=== PATIENT | male | born 1950 | race Caucasian/White ===

== ENCOUNTER → 2023-01-16 13:14 | Outpatient (BNVA) | payer MEDICARE, SELFPAY | PROVIDERS: Referring Provider Family Medicine; Visit Provider Specialist | DX: R42 Dizziness and giddiness (principal); R26.81 Unsteadiness on feet; R47.81 Slurred speech; M62.81 Muscle weakness (generalized) | CPT/HCPCS: 36415; 83516; 83519; 99204 ==

== ENCOUNTER → 2023-03-24 12:04 | Outpatient (BNVA) | payer MEDICARE, SELFPAY | PROVIDERS: PCP Family Medicine; Visit Provider Specialist | DX: R26.89 Other abnormalities of gait and mobility (principal); R42 Dizziness and giddiness; H46.9 Unspecified optic neuritis; Z91.81 History of falling | CPT/HCPCS: 99214 ==

== ENCOUNTER 2023-04-13 12:46 | Outpatient (CLI) | payer MEDICARE, SELFPAY ==
--- NOTE | 2023-04-13 13:00 | MR_ITS ---
WS: [id number] MRI CERVICAL SPINE NONCONTRAST TECHNIQUE: Sagittal T1, T2 and STIR imaging. Axial T2, gradient, and fiesta imaging. CLINICAL INFORMATION: M54.2 - Cervicalgia COMPARISON: None. FINDINGS: Straightening of the normal cervical lordosis. Cord signal is normal. No high-grade central canal lucas rowing. C2-C3: Normal. C3-C4: Moderate facet arthropathy. Mild LEFT and no significant RIGHT foraminal narrowing. Spinal can al is patent. C4-C5: Moderate facet arthropathy. Mild LEFT and no significant RIGHT foraminal narrowing. Spinal can al is patent. C5-C6: Minimal disc bulging. Moderate facet arthropathy. Mild LEFT and no RIGHT foraminal narrowing. Spinal canal is patent. C6-C7: Mild disc bulging with slight effacement of ventral thecal sac. Mild bilateral foraminal narro wing. Moderate facet arthropathy. C7-T1: No significant disc bulging. Spinal canal and foramen are patent. Visualized brain stem structures: Normal. Prevertebral soft tissues: Normal. MR/MR cervical spin wo con* [id number] IMPRESSION: 1. Normal cervical alignment. 2. Cord signal is normal. No suspicious lesions in the cervical cord. No signi ficant central canal stenosis. 3. Mild LEFT C3-C4 and LEFT C4-C5 bony foraminal narrowing. Mild LEFT C5-C6 an d mild bilateral C6-C7 foraminal narrowing. 4. Moderate facet arthropathy C3-C4, C4-C5, C5-C6 ,and LEFT C6-C7.
== END 2023-04-13 12:47 | disposition home or self-care (01) ==
PROVIDERS: PCP Family Medicine; Visit Provider Specialist
DX: M54.2 Cervicalgia (principal); M47.892 Other spondylosis, cervical region
CPT/HCPCS: 72141

== ENCOUNTER → 2023-06-27 12:13 | Outpatient (BNVA) | payer MEDICARE, SELFPAY | PROVIDERS: PCP Family Medicine; Visit Provider Specialist | DX: R42 Dizziness and giddiness (principal); R26.89 Other abnormalities of gait and mobility; Z87.820 Personal history of traumatic brain injury; R56.9 Unspecified convulsions | CPT/HCPCS: 99214 ==